=== PATIENT | female | born 1995 | race African-American/Black ===

== ENCOUNTER 2017-02-20 22:11 | Emergency (ER) | payer BC, OTHER ==
[~2017-02-20] VITALS: Ht 160 cm; Wt 72.6 kg
[~2017-02-20 22:11] MED LIST: NOHOMEMEDICATIONS
[2017-02-20 22:53] LABS: URINE BILIRUBIN NEGATIVE (Negative); URINE BLOOD 1+ (Negative); URINE COLOR YELLOW; URINE GLUCOSE-RANDOM* NEGATIVE (Negative); URINE KETONES NEGATIVE (Negative); URINE NITRITE NEGATIVE (Negative); URINE PROTEIN (DIPSTICK) TRACE (Negative); URINE SPECIFIC GRAVITY >= 1.030 (1.003-1.035); URINE UROBILINOGEN 0.2 E.U./dl (0.2-1.0)
[2017-02-20 23:06] LABS: CASTS None Seen /LPF (None Seen); SQUAMOUS >10 Many /LPF (0-3)
[2017-02-20 23:07] LABS: BACTERIA 1-9 Few /HPF (None Seen); CRYSTALS None Seen /LPF (None Seen); URINE RBC 3-10 Few /HPF (0-2); URINE WBC 0-5 Rare /HPF (0-5)
[2017-02-20] MEDS ORDERED: NORCO 5-325 TA1 EACH PO (23:07)
[2017-02-20] MEDS ORDERED: ACYCLOVIR 400400 MG PO (23:07)
[2017-02-20 23:20] VITALS: BP 116/81
== END 2017-02-20 23:21 | disposition home or self-care (01) ==
LOC: ER 22:11
PROVIDERS: Nurse Practitioner
DX: R21 Rash and other nonspecific skin eruption (principal); J45.909 Unspecified asthma, uncomplicated; Z91.010 Allergy to peanuts

== ENCOUNTER 2019-11-26 08:06 | Emergency (ER) | payer BC ==
[~2019-11-26] VITALS: Ht 162.6 cm; Wt 74.8 kg
[~2019-11-26 08:06] MED LIST changes: +ACYCLOVIR 400400 MG PO; +NORCO 5-325 TA1 EACH PO
--- NOTE | 2019-11-26 08:38 | EKG ---
[facility] [place] [address] ELECTROCARDIOGRAM REPORT Name: OSCAR RIVAS Room #: PRE M.R.#: [id number] Admission: Attend Phys: Discharge: Date of : [birth year] Report #: [id number] THIS REPORT FOR: cc: ELYSSA Najera family physician/PCP Zack Brandt MD [facility] ~ THIS REPORT FOR: //name// [facility] ED Test Date: 2019-11-26 Test Time: 08:02:55 Pat Name: OSCAR RIVAS Department: Room: Gender: F [place] [employer]: [place] : 1995 Requested By: Kyle Arroyo Order Number: [id number] MD: Zack Brandt Measurements Intervals [place] Rate: 79 P: 72 MO: 113 QRS: 58 QRSD: 80 T: 31 QT: 350 QTc: 402 Interpretive Statements Sinus rhythm Borderline short MO interval No previous ECG available for comparison Electronically Signed On 11-26-2019 8:38:22 CDT by Zack Brandt [email or web address] <ELECTRONICALLY SIGNED> By: Zack Brandt MD, FACC 11/26/19 0838 1 1 Zack Brandt MD, FACC /EPI
[2019-11-26] MEDS ORDERED: NAPROSYN500 MG PO (10:03)
[2019-11-26] MEDS ORDERED: PEPCID20 MG PO (10:03)
[2019-11-26 10:08] VITALS: BP 106/68
== END 2019-11-26 10:08 | disposition home or self-care (01) ==
LOC: ER 08:06
DX: R07.89 Other chest pain (principal); Z20.828 Contact with and (suspected) exposure to other viral communicable diseases; R53.83 Other fatigue; K59.00 Constipation, unspecified; J45.909 Unspecified asthma, uncomplicated; Z98.890 Other specified postprocedural states; Z91.010 Allergy to peanuts

== ENCOUNTER 2020-07-09 15:48 | Emergency (ER) | payer BC ==
[~2020-07-09] VITALS: Ht 160 cm; Wt 76.7 kg
[~2020-07-09 15:48] MED LIST changes: +NAPROSYN500 MG PO; +PEPCID20 MG PO
[2020-07-09 16:13] LABS: ABSOLUTE NEUTROPHILS 4.2 thou/uL (1.4-8.2); BASOPHILS 0.8 % (0.0-2.0); EOSINOPHILS 2.5 % (0.0-3.0); HEMATOCRIT 38.4 % (37.0-47.0); HEMOGLOBIN 12.2 gm/dL (12.0-15.0); LYMPHOCYTES 31.5 % (24.0-44.0); MCH 25.2 pg (26.0-34.0); MCHC 31.8 g/dL (28.0-37.0); MCV 79.4 fL (80.0-100.0); MONOCYTES 8.5 % (1.0-8.0); PLATELET COUNT 255 thou/uL (150-400); POLYS 56.7 % (36.0-66.0); RBC 4.84 mil/uL (4.20-5.00); RDW 13.7 % (10.5-14.5); WBC 7.5 thou/uL (4.0-11.0)
[2020-07-09 16:20] LABS: CALCIUM 9.3 mg/dL (8.5-10.1); CREATININE 0.9 mg/dL (0.6-1.0); POTASSIUM 3.9 mmol/L (3.5-5.1)
--- NOTE | 2020-07-09 17:15 | EKG ---
[address] [address] ELECTROCARDIOGRAM REPORT Name: SU HAMILTONOSCAR Room #: REG STEVIE Miguel#: [id number] Admission: 07/09/20 Attend Phys: Discharge: Date of : [birth year] Report #: [id number] 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
[2020-07-09 17:38] VITALS: BP 101/77
== END 2020-07-09 17:45 | disposition home or self-care (01) ==
LOC: ER 15:48
PROVIDERS: Emergency Medicine
DX: R00.2 Palpitations (principal); J45.909 Unspecified asthma, uncomplicated; Z91.010 Allergy to peanuts; Z88.8 Allergy status to other drugs, medicaments and biological substances; Z98.890 Other specified postprocedural states